=== PATIENT | female | born 1965 | race Hispanic/Latino ===

== ENCOUNTER 2018-12-29 14:25 | Inpatient (IN) | payer OTHER ==
[~2018-12-29] VITALS: Ht 167.6 cm; Wt 97.5 kg
[2018-12-29] MEDS ORDERED: KETOROLAC TROMETHAMINE 30 MG/ML VIAL IV NR (14:31)
[2018-12-29] MEDS ORDERED: SODIUM CHLORIDE 0.9% 1000ML 1,000 ML IV STA (14:31)
[2018-12-29 14:40] LABS: BASOPHILS % 0.5 % (0.0-1.0); EOSINOPHILS % 0.4 % (0.0-6.0); HEMATOCRIT 36.8 % (34.2-44.1); HEMOGLOBIN 12.8 g/dL (12.0-16.0); LYMPHOCYTES # (AUTO) 1.7 (1.0-3.2); LYMPHOCYTES % 30.4 % (18.0-39.1); MEAN CORPUSCULAR HEMOGLOBIN 31.4 pg (28-32); MEAN CORPUSCULAR HGB CONC 34.8 g/dL (31-35); MEAN CORPUSCULAR VOLUME 90.4 fL (81-99); MONOCYTES # (AUTO) 0.4 (0.2-0.8); MONOCYTES % 7.5 % (4.4-11.3); NEUTROPHILS # (AUTO) 3.4 (2.1-6.9); NEUTROPHILS % 60.8 % (38.7-80.0); PLATELET COUNT 193 x10e3/uL (140-360); RED BLOOD COUNT 4.07 x10e6/uL (3.6-5.1); RED CELL DISTRIBUTION WIDTH 12.6 % (11.7-14.4)
[2018-12-29] MEDS ORDERED: FAMOTIDINE 20 MG/2 ML VIAL IV NR (14:45)
[2018-12-29] MEDS ORDERED: ONDANSETRON HCL INJ 2MG/ML 2ML 2 MG/ML VIAL IV NR (14:45)
[2018-12-29 15:08] LABS: ALANINE AMINOTRANSFERASE 20 IU/L (0-55); ALBUMIN/GLOBULIN RATIO 1.3 (0.8-2.0); ALKALINE PHOSPHATASE 94 IU/L (40-150); AMYLASE 30 U/L (25-125); ANION GAP 17.5 mmol/L (8-16); BLOOD UREA NITROGEN 8 mg/dL (7-26); BUN/CREATININE RATIO 11 (6-25); CALCIUM 9.8 mg/dL (8.4-10.2); CARBON DIOXIDE 22 mmol/L (22-29); CHLORIDE 104 mmol/L (98-107); CREATINE KINASE 99 IU/L (29-168); EST GLOMERULAR FILTRATION RATE > 60 ML/MIN (60-); GLUCOSE 137 mg/dL (74-118); LIPASE 17 U/L (8-78); POTASSIUM 3.5 mmol/L (3.5-5.1); SODIUM 140 mmol/L (136-145)
--- NOTE | 2018-12-29 15:22 | Diagnostic Imaging Report ---
EXAM: Right upper quadrant abdominal ultrasound INDICATION: Right upper quadrant pain COMPARISON: None. TECHNIQUE: Transverse and longitudinal images of the right upper quadrant abdomen were obtained FINDINGS: Liver: Size: 12.6 cm in the right midclavicular line, normal Appearance: Normal echogenicity, smooth contour Mass: No focal masses Gallbladder: Multiple echogenic gallstones with posterior shadowing. No gallbladder wall thickening or pericholecystic fluid. Negative sonographic Ma's sign. Gallbladder wall measures 0.3 cm. Bile Ducts: Intrahepatic Ducts: No dilatation Extrahepatic Ducts: Common bile duct measures 0.2cm, no dilatation Pancreas: Limited visualization to to overlying bowel gas. Kidney: The right kidney measures 10.0 cm without evidence of hydronephrosis or stone. Vessels: Aorta: Limited visualization due to overlying bowel gas. Inferior Vena Cava: Limited visualization due to overlying bowel gas. Main Portal Vein: 0.7 cm, normal size with hepatopetal flow. Free Fluid: No ascites or pleural effusion IMPRESSION: Cholelithiasis without sonographic evidence of cholecystitis. Signed by: Sofy Casillas MD on 12/29/2018 3:19 PM
[2018-12-29] MEDS ORDERED: DICYCLOMINE HCL 20 MG/2 ML VIAL IM ONE (15:30)
[2018-12-29 15:35] LABS: BILIRUBIN,URINE NEGATIVE (NEGATIVE); CLARITY,URINE CLEAR (CLEAR); COLOR,URINE YELLOW (YELLOW); KETONES,URINE 1+ (NEGATIVE); LEUKOCYTE ESTERASE ,URINE NEGATIVE (NEGATIVE); NITRITE,URINE NEGATIVE (NEGATIVE); PROTEIN,URINE DIPSTICK NEGATIVE (NEGATIVE); URINE UROBILINOGEN 0.2 mg/dL (0.2 - 1)
[2018-12-29 15:50] LABS: BACTERIA,URINE FEW /HPF; EPITHELIAL CELLS,URINE FEW /LPF
--- NOTE | 2018-12-29 16:25 | Diagnostic Imaging Report ---
EXAMINATION: CHEST SINGLE (PORTABLE) INDICATION: Pain COMPARISON: None FINDINGS: LINES/TUBES:EKG leads overlie the chest. LUNGS:The lungs are well-inflated. No focal consolidation or pulmonary edema. PLEURA:No pleural effusion or pneumothorax. MEDIASTINUM:The cardiomediastinal silhouette appears normal in size and shape. BONES/SOFT TISSUES:No acute osseous injury. ABDOMEN:No free air under the diaphragm. IMPRESSION: No focal pneumonia or pulmonary edema. Signed by: Sofy Casillas MD on 12/29/2018 4:22 PM
[2018-12-29] MEDS ORDERED: MAGNESIUM/ALUMINUM/SIMETHICONE 30 ML UDC PO ONE (16:30)
[2018-12-29] MEDS ORDERED: LIDOCAINE VISC 2% SOLN 15 ML UDC PO ONE (16:30)
[2018-12-29] MEDS: BELLADONNA ALK/PHENOBARBITAL 5 ML UDC PO SCH (17:51)
--- NOTE | 2018-12-29 17:52 | Diagnostic Imaging Report ---
EXAM: CT of the abdomen and pelvis WITHOUT contrast HISTORY: r/o sbo / divertic / pancreatitis c/o ruq pain, history of gastric bypass COMPARISON: None available.. TECHNIQUE: The abdomen and pelvis were scanned utilizing a multidetector helical scanner. Coronal and sagittal reformats are available. PROTOCOL: Routine IV CONTRAST: 100 cc of Isovue-370. ORAL CONTRAST: None, which limits sensitivity and specificity of the exam. RADIATION DOSE: Total DLP: 841.84 mGy*cm Estimated effective dose: (DLP x 0.015 x size factor) Dose modulation, iterative reconstruction, and/or weight based adjustment of the mA/kV was utilized to reduce the radiation dose to as low as reasonably achievable. COMPLICATIONS: None FINDINGS: LOWER THORAX: Incidentally, a subcentimeter thin-walled peripheral cyst at the left lung base. HEPATOBILIARY: No mass. No biliary dilation. No calcified gallstone. SPLEEN: No splenomegaly. PANCREAS: No focal masses or ductal dilatation. ADRENALS: No discrete adrenal nodule. KIDNEYS/URETERS: No hydronephrosis, stones, or definite solid mass lesions. PELVIC ORGANS/BLADDER: Bilateral Essure devices. GI TRACT: Postsurgical changes in the region of the proximal stomach and left upper quadrant of the abdomen. Low density fluid within the partially decompressed stomach. Within the left upper quadrant of the abdomen, dilated and fluid-filled small bowel (up to 4.4 cm in diameter), short segment narrowing to decompress small bowel in the region of some of the radiopaque suture material (axial images 32-34). PERITONEUM / RETROPERITONEUM: Small volume low density free fluid within the pelvis. No free air. LYMPH NODES: No pathologically enlarged lymph node. VESSELS: Unremarkable. BONES: No aggressive osseous lesion or acute fracture. SOFT TISSUES: Otherwise, unremarkable. IMPRESSION: Findings compatible with a high-grade small bowel obstruction in the region of the postsurgical changes within the left upper quadrant of the abdomen, as detailed above. Signed by: Dr. Herrera Molina D.O., M.M.M. on 12/29/2018 5:49 PM
--- NOTE | 2018-12-29 18:11 | NUR ---
pt states pain is 3/10 after gi cocktail
[2018-12-29] MEDS ORDERED: DIPHENHYDRAMINE HCL INJ 50 MG/ML VIAL IV PRN (18:45)
--- OUTSIDE RECORDS SUMMARY | 2018-12-29 19:09 | XMS REPORT ---
[facility] Address Unknown Phone Unavailable Care Team Providers Care Polishing Machine Tender Name Role Phone Sarah CHERRY Unavailable Unavailable Problems This patient has no known problems. Allergies, Adverse Reactions, Alerts This patient has no known allergies or adverse reactions. Medications This patient has no known medications. Results Test Description Test Time Test Comments Text Results Atomic Results Result Comments CT ABDOMEN/PELVIS W 2018-12-29 17:34:00 [place] [address] Patient Name: ANA SOSA MR #: [id number] : 1965 Age/Sex: 53/F Req #: [id number] Adm Physician: Ordered by: SHAR MCNEILL ROPE SILICA MACHINE OPERATOR Report #: [id number] Location: ER Room/Bed: Procedure: [id number] CT/CT ABDOMEN/PELVIS W Exam Date: 12/29/18 Exam Time: 1615 REPORT STATUS: Signed EXAM: CT of the abdomen and pelvis WITHOUT contrast HISTORY: r/o sbo / divertic / pancreatitis c/o ruq pain, history of gastric bypass COMPARISON: None available.. TECHNIQUE: The abdomen and pelvis were scanned utilizing a multidetector helical scanner. Coronal and sagittal reformats are available. PROTOCOL: Routine IV CONTRAST: 100 cc of Isovue-370. ORAL CONTRAST: None, which limits sensitivity and specificity of the exam. RADIATION DOSE: Total DLP: 841.84 mGy*cm Estimated effective dose: (DLP x 0.015 x size factor) Dose modulation, iterative reconstruction, and/or weight based adjustment of the mA/kV was utilized to reduce the radiation dose to as low as reasonably achievable. COMPLICATIONS: None FINDINGS: LOWER THORAX: Incidentally, a subcentimeter thin-walled peripheral cyst at the left lung base. HEPATOBILIARY: No mass. No biliary dilation. No calcified gallstone. SPLEEN: No splenomegaly. PANCREAS: No focal masses or ductal dilatation. ADRENALS: No discrete adrenal nodule. KIDNEYS/URETERS: No hydronephrosis, stones, or definite solid mass lesions. PELVIC ORGANS/BLADDER: Bilateral Essure devices. GI TRACT: Postsurgical changes in the region of the proximal stomach and left upper quadrant of the abdomen. Low density fluid within the partially d ecompressed stomach. Within the left upper quadrant of the abdomen, dilated and fluid-filled small bowel (up to 4.4 cm in diameter), short segment narrowing to decompress small bowel in the region of some of the radiopaque suture material (axial images 32-34). PERITONEUM / RETROPERITONEUM: Small volume low density free fluid within the pelvis. No free air. LYMPH NODES: No pathologically enlarged lymph node. VESSELS: Unremarkable. BONES: No aggressive osseous lesion or acute fracture. SOFT TISSUES: Otherwise, unremarkable. IMPRESSION: Findings compatible with a high-grade small bowel obstruction in the region of the postsurgical changes within the left upper quadrant of the abdomen, as detailed above. Signed by: Dr. Gale Molina D.O., M.M.M. on 12/29/2018 5:49 PM Dictated By: GALE MOLINA DO 48 Transcribed By: ANTONIO on 12/29/181748 COPY TO: SHAR MCNEILL NP CHEST SINGLE (PORTABLE) 2018-12-29 16:19:00 [place] [address] Patient Name: ANA SOSA MR #: [id number] : 1965 Age/Sex: 53/F Req #: [id number] Adm Physician: Ordered by: SHAR MCNEILL NP Report #: [id number] Location: ER Room/Bed: Procedure: [id number] DX/CHEST SINGLE (PORTABLE) Exam Date: 12/29/18 Exam Time: 1601 REPORT STATUS: Signed EXAMINATION: CHEST SINGLE (PORTABLE) INDICA TION: Pain COMPARISON: None FINDINGS: LINES/TUBES:EKG leads overlie the chest. LUNGS:The lungs are well-inflated. No focal consolidation or pulmonary edema. PLEURA:No pleural effusion or pneumothorax. MEDIASTINUM:The cardiomediastinal silhouette appears normal in size and shape. BONES/SOFT TISSUES:No acute osseous injury. ABDOMEN:No free air under the diaphragm. IMPRESSION: No focal pneumonia or pulmonary edema. Signed by: Shannan Swanson MD on 12/29/2018 4:22 PM Dictated By: SHANNAN SWANSON MD 21 Transcribed By: ANTONIO on 12/29/181621 COPY TO: SHAR MCNEILL NP [facility] 2018-12-29 15:17:00 [place] [address] Patient Name: ANA SOSA MR #: [id number] : 1965 Age/Sex: 53/F Req #: [id number] Adm Physician: Ordered by: SHAR MCNEILL ROPE SILICA MACHINE OPERATOR Report #: [id number] Location: ER Room/Bed: Procedure: [id number] US/US GALLBLADDER Exam Date: 12/29/18 Exam Time: 1445 REPORT STATUS: Signed EXAM: Right upper quadrant abdominal ultrasound INDICATIO N: Right upper quadrant pain COMPARISON: None. TECHNIQUE: Transverse and longitudinal images of the right upper quadrant abdomen were obtained FINDINGS: Liver: Size: 12.6 cm in the right midclavicular line, normal Appearance: Normal echogenicity, smooth contour Mass: No focal masses Gallbladder: Multiple echogenic gallstones with posterior shadowing. No gallbladder wall thickening or pericholecystic fluid. Negative sonographic Ma's sign. Gallbladder wall measures 0.3 cm. Bile Ducts: Intrahepatic Ducts: No dilatation Extrahepatic Ducts: Common bile duct measures 0.2cm, no dilatation Pancreas: Limited visualization to to overlying bowel gas. Kidney: The right kidney measures 10.0 cm without evidence of hydronephrosis or stone. Vessels: Aorta: Limited visualization due to overlying bowel gas. Inferior Vena Cava: Limited visualization due to overlying bowel gas. Main Portal Vein: 0.7 cm, normal size with hepatopetal flow. Free Fluid: No ascites or pleural effusion IMPRESSION: Cholelithiasis without sonographic evidence of cholecystitis. Signed by: Shannan Swanson MD on 12/29/2018 3:19 PM Dictated By: SHANNAN SWANSON MD [id number] Transcribed By: ANTONIO on 12/29/18 2606 COPY TO: SHAR MCNEILL NP
--- NOTE | 2018-12-29 21:04 | NUR ---
patient takes no home medications
[2018-12-29] MEDS: SODIUM CHLORIDE 0.9% 1000ML 1,000 ML IV SCH (21:35)
[2018-12-29] MEDS: HYDROMORPHONE 2MG/ML 2 MG/ML ML IV PRN (21:54)
[2018-12-29 21:59] VITALS: BP 116/61
[2018-12-29 22:03] VITALS: BP 116/61
[2018-12-29] MEDS ORDERED: MULTI-VITAMIN1 EACH PO (22:14)
[2018-12-30] VITALS (7 sets, daily range): BP systolic 118–127; BP diastolic 61–76
[2018-12-30] MEDS ORDERED: SODIUM CHLORIDE 0.9% 100 ML 100 ML ONE (03:01)
[2018-12-30] MEDS ORDERED: IOPAMIDOL 370 MG/ML 200 ML INFUS..BTL INJ ONE (03:01)
[2018-12-30] MEDS: HYDROMORPHONE 2MG/ML 2 MG/ML ML IV PRN ×2 (04:24→09:06)
[2018-12-30] MEDS: PROMETHAZINE 25MG/ NS 50ML (IV) IV PRN ×3 (04:24→18:27)
[2018-12-30] MEDS: SODIUM CHLORIDE 0.9% 1000ML 1,000 ML IV SCH ×2 (04:30→14:00)
--- NOTE | 2018-12-30 04:40 | NUR ---
The patient was feeling nausea. RN provided the ememis bag while administering Phenergan and pain medication. The patient stated she is feeling better.
[2018-12-30 05:16] LABS: BASOPHILS % 0.6 % (0.0-1.0); EOSINOPHILS % 0.2 % (0.0-6.0); HEMOGLOBIN 11.6 g/dL (12.0-16.0); LYMPHOCYTES # (AUTO) 1.5 (1.0-3.2); LYMPHOCYTES % 27.1 % (18.0-39.1); MEAN CORPUSCULAR HEMOGLOBIN 31.6 pg (28-32); MEAN CORPUSCULAR HGB CONC 34.1 g/dL (31-35); MEAN CORPUSCULAR VOLUME 92.6 fL (81-99); MONOCYTES # (AUTO) 0.5 (0.2-0.8); MONOCYTES % 9.2 % (4.4-11.3); NEUTROPHILS # (AUTO) 3.4 (2.1-6.9); NEUTROPHILS % 62.5 % (38.7-80.0); PLATELET COUNT 163 x10e3/uL (140-360); RED BLOOD COUNT 3.67 x10e6/uL (3.6-5.1); RED CELL DISTRIBUTION WIDTH 12.7 % (11.7-14.4)
[2018-12-30 05:34] LABS: ANION GAP 11.5 mmol/L (8-16); BLOOD UREA NITROGEN 9 mg/dL (7-26); BUN/CREATININE RATIO 13 (6-25); CALCIUM 8.8 mg/dL (8.4-10.2); CARBON DIOXIDE 25 mmol/L (22-29); CHLORIDE 108 mmol/L (98-107); CREATININE, SERUM 0.69 mg/dL (0.57-1.11); EST GLOMERULAR FILTRATION RATE > 60 ML/MIN (60-); GLUCOSE 120 mg/dL (74-118); POTASSIUM 3.5 mmol/L (3.5-5.1); SODIUM 141 mmol/L (136-145)
[2018-12-30] MEDS: FAMOTIDINE 20 MG/2 ML VIAL IV SCH ×2 (09:06→18:27)
--- NOTE | 2018-12-30 09:59 | Diagnostic Imaging Report ---
Exam: KUB - 2 views Clinical History: Small bowel obstruction Comparison: CT abdomen pelvis of 12/29/2018 Findings: There are distended loops of small bowel in the left abdomen measuring up to at least 3.5 cm with air-fluid levels consistent with known small bowel obstruction seen on the CT abdomen and pelvis of 12/29/2018. No free air. Surgical clips and suture project over the left upper quadrant. The partially visualized lung bases appear unremarkable. The osseous structures appear unremarkable. There is contrast material in the bladder. Incidental note of tubal ligation devices. No abnormal calcifications. Impression: Redemonstration of findings of small bowel obstruction. No free air. Signed by: Sofy Casillas MD on 12/30/2018 9:56 AM
[2018-12-30] MEDS: BELLADONNA ALK/PHENOBARBITAL 5 ML UDC PO SCH ×3 (10:04→21:00)
--- NOTE | 2018-12-30 10:32 | NUR ---
aware of KUB results. No new orders
[2018-12-30] MEDS ORDERED: HYDROMORPHONE 2MG/ML 2 MG/ML ML IV PRN ×2 (10:45→11:00)
--- NOTE | 2018-12-30 12:46 | Consultation ---
DATE OF CONSULTATION: 12/30/2018 HISTORY OF PRESENT ILLNESS: The patient is a 53-year-old female, previous gastric bypass done in 2007, presents with complaints of epigastric abdominal pain started about four days ago, was milder, then got worse and became very severe yesterday, for which she came to the emergency room. She had associated nausea and vomiting. She says the pain is less now. Evaluation with CT scan of the abdomen and pelvis as well as gallbladder ultrasound revealed findings suggestive of possible intestinal obstruction. All this was strictly involving the Angelica-Y limb and also she was found to have gallstones. PAST MEDICAL HISTORY: Significant for previous gastric bypass as stated above, previous jaw surgery. She denies any other medical problems. ALLERGIES: SHE HAS NO KNOWN ALLERGIES. MEDICATIONS: There were no current medications except for vitamins. FAMILY HISTORY: Noncontributory. SOCIAL HISTORY: The patient does not smoke cigarettes or drink alcohol. REVIEW OF SYSTEMS: As stated above, otherwise was negative. PHYSICAL EXAMINATION: GENERAL: The patient is awake, alert, in no distress. VITAL SIGNS: Normal. HEENT: Unremarkable. Sclerae are not icteric. NECK: Supple. No masses. LUNGS: Equal breath sounds are clear bilaterally. CARDIAC: Regular rate and rhythm with no murmur. ABDOMEN: Soft. There was no significant tenderness. No mass. No distention. No organomegaly. EXTREMITIES: Have no edema. Pulses are palpable. NEUROLOGIC: Intact. ASSESSMENT: A 53-year-old female with abdominal pain. CT scan suggests small bowel obstruction, but she also has gallstones. Her symptoms are more consistent with possible gallbladder disease and biliary colic rather than intestinal obstruction as she is passing flatus and findings on CT scan have dilated Angelica Y limb is physiologic after gastric bypass. PLAN: To evaluate further with a HIDA scan. There are no signs of peritonitis. No findings that warrant immediate surgical intervention. Thank you for asking me to see Ms. Oliva. MD CHEN Cary/KATIE /[id number]
--- NOTE | 2018-12-30 19:10 | NUR ---
Report given to oncoming nurse of patient's status. Resting in bed. No s/s of acute distress noted.
--- NOTE | 2018-12-30 19:54 | Diagnostic Imaging Report ---
Hepatobiliary Scan with Gallbladder Ejection Fraction Clinical information: 53 F with small bowel obstruction. Severe abdominal pain Technique: Following intravenous administration of 6.8 millicuries of Tc-99m mebrofenin, dynamic images of the abdomen in the anterior projection were obtained through 30 minutes. Additional static image was obtained at 1 hour. Sincalide (CCK analog) 2.0 micrograms was administered intravenously over 30 minutes with additional imaging for determination of gallbladder ejection fraction. Discussion: Perfusion of the liver is normal. Extraction of tracer by the liver parenchyma is normal. Tracer appears promptly within the biliary tract. The gallbladder begins to fill by 60 minutes post injection of tracer and fills adequately. Tracer is seen in the small bowel by 21 minutes. The gallbladder ejection fraction with sincalide is 7% (normal greater than 40%). Impression: 1. Filling of the gallbladder excludes acute cystic duct obstruction/acute cholecystitis. 2. The decreased gallbladder ejection fraction of 7% supports the clinical diagnosis of chronic cholecystitis/gallbladder dyskinesia. Signed by: Dr. Raiza Heard M.D. on 12/30/2018 7:51 PM
--- NOTE | 2018-12-30 20:00 | NUR ---
PATIENT IS MOSTLY ASLEEP, SHE'S EASY TO AROUSE AND SHE DENIES ABDOMINAL PAIN. BED ALARM ON, CALL LIGHT WITHIN EASY REACH. CALL AND SPOKE WITH DR HERNANDEZ REGARDING THE PRELIMINARY HIDA SCAN RESULT WITH EF OF 7%, STATED "I WILL SEE HER TOMORROW."
[2018-12-31 00:14] VITALS: BP 163/59
[2018-12-31] MEDS: SODIUM CHLORIDE 0.9% 1000ML 1,000 ML IV SCH ×3 (00:15→11:00)
--- NOTE | 2018-12-31 00:40 | NUR ---
PATIENT IS ASLEEP, SHE'S EASY TO AROUSE. NO RESPIRATORY DISTRESS OBSERVED, SHE DENIES ABDOMINAL PAIN OR NAUSEA. CALL LIGHT WITHIN EASY REACH, SHE'S INSTRUCTED TO CALL FOR ASSISTANCE NEEDED.
--- NOTE | 2018-12-31 02:42 | NUR ---
WALKING ROUNDS MADE, PATIENT ASLEEP BUT SHE'S EASY TO AROUSE. SHE DENIES ABDOMINAL PAIN OR NAUSEA, BED ALARM ON, CALL LIGHT WITHIN EASY REACH.
[2018-12-31 05:11] VITALS: BP 121/72
--- NOTE | 2018-12-31 06:51 | NUR ---
PATIENT CONDITION STABLE WITHOUT ABDOMINAL PAIN OR NAUSEA. DR HERNANDEZ SAW THE PATIENT, PLAN IS FOR CLEAR LIQUID DIET TODAY AND SURGERY FOR TOMORROW.
[2018-12-31 07:29] VITALS: BP 121/72
[2018-12-31 08:07] VITALS: BP 119/67
[2018-12-31] MEDS: FAMOTIDINE 20 MG/2 ML VIAL IV SCH ×2 (08:33→17:26)
[2018-12-31] MEDS: BELLADONNA ALK/PHENOBARBITAL 5 ML UDC PO SCH ×2 (08:33→17:26)
[2018-12-31 11:57] LABS: BASOPHILS % 0.7 % (0.0-1.0); EOSINOPHILS # (AUTO) 0.1 (0.0-0.4); EOSINOPHILS % 2.2 % (0.0-6.0); HEMATOCRIT 34.7 % (34.2-44.1); HEMOGLOBIN 11.9 g/dL (12.0-16.0); LYMPHOCYTES # (AUTO) 1.9 (1.0-3.2); LYMPHOCYTES % 41.2 % (18.0-39.1); MEAN CORPUSCULAR HEMOGLOBIN 31.4 pg (28-32); MEAN CORPUSCULAR HGB CONC 34.3 g/dL (31-35); MEAN CORPUSCULAR VOLUME 91.6 fL (81-99); MONOCYTES # (AUTO) 0.4 (0.2-0.8); NEUTROPHILS # (AUTO) 2.1 (2.1-6.9); NEUTROPHILS % 46.7 % (38.7-80.0); PLATELET COUNT 149 x10e3/uL (140-360); RED BLOOD COUNT 3.79 x10e6/uL (3.6-5.1); RED CELL DISTRIBUTION WIDTH 12.5 % (11.7-14.4)
[2018-12-31 12:18] LABS: ANION GAP 12.8 mmol/L (8-16); BLOOD UREA NITROGEN 6 mg/dL (7-26); BUN/CREATININE RATIO 9 (6-25); CALCIUM 8.9 mg/dL (8.4-10.2); CARBON DIOXIDE 26 mmol/L (22-29); CHLORIDE 104 mmol/L (98-107); CREATININE, SERUM 0.68 mg/dL (0.57-1.11); EST GLOMERULAR FILTRATION RATE > 60 ML/MIN (60-); GLUCOSE 96 mg/dL (74-118); POTASSIUM 3.8 mmol/L (3.5-5.1); SODIUM 139 mmol/L (136-145)
[2018-12-31 12:20] VITALS: BP 110/64
--- NOTE | 2018-12-31 15:15 | NUR ---
PER DISCUSSION DURING ROUNDS PATIENT TO GET TESTING AND RESULTS CALLED TO DR. CAVAZOS. IF RESULTS WNL AND PATIENT CLEARED BY DR. HERNANDEZ THEN PATIENT TO DC TODAY.
--- NOTE | 2018-12-31 15:29 | Diagnostic Imaging Report ---
EXAMINATION: ABDOMEN ACUTE SERIES W/PA CXR INDICATION: Pain, known small bowel obstruction. COMPARISON: KUB of 12/30/2018, CT abdomen pelvis of 12/29/2018 FINDINGS: LINES/TUBES:None LUNGS:The lungs are well-inflated. No focal consolidation or pulmonary edema. PLEURA:No pleural effusion or pneumothorax. MEDIASTINUM:The cardiomediastinal silhouette appears normal in size and shape. BONES/SOFT TISSUES:No acute osseous injury. ABDOMEN:Multiple nondistended air-filled loops of bowel in the left upper quadrant. Interval improvement in dilated loops compared to 12/30/2018. No free air. Surgical clips and sutures overlie the left upper quadrant. Tubal ligation devices are present. Phleboliths in the pelvis. The osseous structures appear unremarkable. IMPRESSION: Interval improvement in dilated left upper quadrant bowel loops compared to 12/29/2018 and 12/30/2018. No free air. No focal pneumonia or pulmonary edema. Signed by: Sofy Casillas MD on 12/31/2018 3:26 PM
[2018-12-31 16:12] VITALS: BP 107/66
[2019-01-05] MEDS ORDERED: VITAMIN B-121000 MCG PO (12:49)
[2019-01-05] MEDS ORDERED: VITAMIN C1000 MG PO (12:49)
[2019-01-05] MEDS ORDERED: IRON PO (12:49)
[2019-01-05] MEDS ORDERED: VITAMIN B1 PO (12:49)
[2019-01-05] MEDS ORDERED: VITAMIN D400 UNIT PO (12:49)
[2019-01-05] MEDS ORDERED: BIOTIN300 MCG PO (12:49)
== END 2018-12-31 18:05 | disposition home or self-care (01) | DRG 445 ==
LOC: ER 14:25 → ERHOLD 19:07 → MED/SURG 21:44
DX: K82.8 Other specified diseases of gallbladder (principal); K56.609 Unspecified intestinal obstruction, unspecified as to partial versus complete obstruction; K80.10 Calculus of gallbladder with chronic cholecystitis without obstruction; Z98.84 Bariatric surgery status
CPT/HCPCS: 36415; 71045; 74019; 74022; 74177; 76705; 78227; 80048; 80053; 81001; 82150; 82550; 82553; 83690; 84484; 84702; 85025; 87086; 93005; 99284; A9537; J0500; J1885; J2405; J2550; J7030; Q9967

== ENCOUNTER → 2019-01-08 | Day surgery (SDC) | payer OTHER ==
[2019-01-05 13:40] LABS: BASOPHILS % 0.5 % (0.0-1.0); EOSINOPHILS # (AUTO) 0.1 (0.0-0.4); EOSINOPHILS % 2.3 % (0.0-6.0); HEMATOCRIT 35.9 % (34.2-44.1); LYMPHOCYTES # (AUTO) 1.7 (1.0-3.2); MEAN CORPUSCULAR HEMOGLOBIN 30.9 pg (28-32); MEAN CORPUSCULAR HGB CONC 33.4 g/dL (31-35); MEAN CORPUSCULAR VOLUME 92.5 fL (81-99); MONOCYTES # (AUTO) 0.3 (0.2-0.8); MONOCYTES % 7.2 % (4.4-11.3); NEUTROPHILS # (AUTO) 1.8 (2.1-6.9); NEUTROPHILS % 45.7 % (38.7-80.0); PLATELET COUNT 186 x10e3/uL (140-360); RED BLOOD COUNT 3.88 x10e6/uL (3.6-5.1); RED CELL DISTRIBUTION WIDTH 12.7 % (11.7-14.4)
[~2019-01-08] MED LIST: ACETAMINOPHEN 1000 MG/100 ML IV ONE; ATROPINE SULFATE 1 MG/ML VIAL ONE; BIOTIN300 MCG PO; BUPIVACAINE HCL 0.5% INJ 30 ML VIAL INJ ONE; CEFAZOLIN SOD 1 GM/NS 50ML 100 ML IV ONE; DESFLURANE 240 ML BTL INH ONE; DEXAMETHASONE SOD PHOS INJ 4 MG/ML VIAL ONE; FENTANYL CITRATE/PF 100MCG/2 ML INJ ONE; HYDROMORPHONE 2MG/ML 2 MG/ML ML ONE; IRON PO; LIDOCAINE HCL 2% LOCAL INJ 5 ML SDV VIAL INJ ONE; MIDAZOLAM HCL 2 MG/2 ML VIAL ONE; MORPHINE SULFATE INJ 10 MG/ML ONE; MULTI-VITAMIN1 EACH PO; NEOSTIGMINE 5 MG/5ML SYR ONE; ONDANSETRON HCL INJ 2MG/ML 2ML 2 MG/ML VIAL ONE; PROPOFOL IV EMULSION 10 MG/ML 20 ML VIAL ONE; VITAMIN B-121000 MCG PO; VITAMIN B1 PO; VITAMIN C1000 MG PO; VITAMIN D400 UNIT PO
[2019-01-08 16:00] VITALS: BP 121/72
--- NOTE | 2019-01-08 22:33 | Operative Report ---
DATE OF PROCEDURE: 01/08/2019 SURGEON: Clayton Roa MD PREOPERATIVE DIAGNOSES: Chronic cholecystitis and cholelithiasis. POSTOPERATIVE DIAGNOSES: Chronic cholecystitis and cholelithiasis. PROCEDURE: Diagnostic laparoscopy and laparoscopic cholecystectomy. RAG CUTTING MACHINE FEEDER: None. ANESTHESIA: General endotracheal. INDICATIONS AND FINDINGS: The patient is a 53-year-old female with an episode of severe epigastric right upper quadrant abdominal pain. Workup revealed gallstones. Surgery based on gallbladder was distended containing multiple stones. Cystic duct was about 3 mm in diameter. Common bile duct was about 6 mm in diameter. Liver, stomach, lower abdomen all appeared normal. TECHNIQUE: After adequate general anesthesia, the patient in supine position, the abdomen was prepped and draped in sterile fashion with ChloraPrep solution. Skin in the umbilicus was infiltrated with 0.5% Marcaine, incision made in the umbilicus, abdominal wall was elevated and Veress needle was introduced. Pneumoperitoneum was then created. A 10 mm trocar and cannula were then passed through the umbilical wound. Laparoscopic camera was introduced. Initial laparoscopy revealed liver, stomach and lower abdomen all appeared normal. There were few adhesions involving the omentum. A 10 mm trocar and cannula were placed in the epigastrium, two 5 mm trocars and cannulas were placed in the right upper quadrant. These were placed under direct vision. Fundus of the gallbladder was grasped, retracted superiorly. The adhesions that were present involving the omentum, these were lysed. Neck of the gallbladder was grasped, retracted laterally. Peritoneum over the neck of the gallbladder was incised. The gallbladder cystic duct junction was dissected free. Cystic artery was also dissected free. Cystic artery was divided between hemoclips close to the gallbladder. Cystic duct was also divided between hemoclips with three clips being left on the common bile duct side. So, the posterior branch of cystic artery was also divided between hemoclips. The gallbladder was dissected free from the liver using scissors and electrocautery. Once it was entirely free, it was placed into an Endopouch and brought through the epigastric cannula containing multiple stones. Gallbladder bed was inspected for hemostasis which was seen to be adequate. It was irrigated with saline. All fluid aspirated, inspected once again for hemostasis which was seen to be adequate. Instruments and cannulas were then removed. Pneumoperitoneum was evacuated. Wounds were then closed. Fascia in the umbilical and epigastric wound closed with 0 Vicryl, skin to all wounds closed with 4-0 Vicryl in subcuticular fashion. Sterile dressings applied to each wound. The patient tolerated the procedure well. Estimated blood loss was 10 mL. There were no complications. All counts were correct. The patient was taken to the recovery room in satisfactory condition. MD CHEN Cary/KATIE /[id number]
== END | disposition home or self-care (01) ==
LOC: OR 11:40
PROVIDERS: ATTEND Surgery
DX: K80.10 Calculus of gallbladder with chronic cholecystitis without obstruction (principal); Z01.812 Encounter for preprocedural laboratory examination; Z98.84 Bariatric surgery status; K82.8 Other specified diseases of gallbladder
CPT/HCPCS: 36415; 47562; 85025; 88304; 93005; J0131; J0461; J0690; J1100; J1170; J2001; J2250; J2270; J2405; J2704; J3010